=== PATIENT | male | born 1990 ===

== ENCOUNTER 2020-05-18 10:26 | Emergency (ER) | payer SELFPAY ==
[2020-05-18 10:33] VITALS: BP 116/60
== END 2020-05-18 11:20 | disposition left against medical advice (07) ==
LOC: ED 10:26
DX: R51.9 Headache, unspecified (principal); Z53.21 Procedure and treatment not carried out due to patient leaving prior to being seen by health care provider

== ENCOUNTER 2020-08-03 08:51 | Emergency (ER) | payer SELFPAY ==
[2020-08-03 09:16] VITALS: BP 112/62
--- NOTE | 2020-08-03 10:44 | Emergency Department Report ---
Chief Complaint: Extremity Problem,Nontraumatic Stated Complaint: RT FOOT PAIN BETWEEN TOES Time Seen by Provider: 08/03/20 10:09 - HPI History of Present Illness: 30-year-old -[place] male presents to the emergency room stating that he has pain between his fourth and fifth toe and on top of his fifth toe x1 month. Patient states is been using fungus cream but not helping. Patient states that it is worse when he wears his tennis shoes and it rubs against it. Patient denies any fever chills. Patient does not have a primary care provider. - Exam Vital Signs: Vital Signs 08/03/20 09:16 Temperature 98.3 F Pulse Rate 51 L Respiratory 18 Rate Blood Pressure 112/62 [Right] O2 Sat by Pulse 100 Oximetry Physical Exam: Alert and oriented x3 no acute distress nontoxic in appearance Respiratory nonlabored breathing Extremities full range of motion. Right foot between the fourth and fifth digit webspace firm flat ulcerative sore that is dry. Dry hyper keratotic tissue, fifth digit. MSE screening note: Focused history and physical exam performed. Due to findings the following was ordered: 30-year-old -[place] male presents to the emergency room stating that he has pain between his fourth and fifth toe and on top of his fifth toe x1 month. Patient states is been using fungus cream but not helping. Patient states that it is worse when he wears his tennis shoes and it rubs against it. Patient denies any fever chills. Patient does not have a primary care provider. ED Disposition for MSE Disposition: DC-01 TO HOME OR SELFCARE Is pt being admited?: No Does the pt Need Aspirin: No Condition: Stable Additional Instructions: Recommend to follow-up with podiatry. I do recommend corn pads acute can get from [id number] asked the pharmacist. Referrals: PRIMARY CARE, [Primary Care Provider] - 3-5 Days BETO SALAS DPM [Staff Physician] - 3-5 Days
== END 2020-08-03 10:34 | disposition home or self-care (01) ==
LOC: ED 08:51
DX: M79.674 Pain in right toe(s) (principal)
CPT/HCPCS: 99282

== ENCOUNTER 2021-01-30 11:19 | Emergency (ER) | payer SELFPAY | END 2021-01-30 13:06 | disposition left against medical advice (07) | LOC: ED 11:19 | DX: M54.50 Low back pain, unspecified (principal); Z53.21 Procedure and treatment not carried out due to patient leaving prior to being seen by health care provider ==